=== PATIENT | female | born 1965 | race American Indian/Alaskan Native ===

== ENCOUNTER 2021-03-28 16:56 | Emergency (ER) | payer SELFPAY ==
[2021-03-28 17:58] VITALS: BP 141/87
--- NOTE | 2021-03-28 18:02 | Emergency Department Report ---
ED ENT HPI - General Chief complaint: Dental/Oral Stated complaint: TOOTHACHE Time Seen by Provider: 03/28/21 17:29 Source: patient Mode of arrival: Ambulatory Limitations: No Limitations - History of Present Illness Initial comments: Patient is a 55-year-old female presents emergency room complaints of left lower dental pain that began 2 days ago. She states that this morning she woke up with swelling present to her left lower jaw. She states that she went to her dentist 1 month ago and was advised that she needed to have a tooth pulled and was given antibiotics and her symptoms improved and she did not follow back up with a dentist. She denies any fever, vomiting, chills, difficulty swallowing, difficulty breathing. Past medical history of bowel obstruction. No allergies to medications. - Related Data Previous Rx's Medication Instructions Recorded Last Taken Type Chlorhexidine Mouthwash [Peridex] 15 ml MM BID #1 bottle 03/28/21 Unknown Rx Clindamycin [Clindamycin CAP] 300 mg PO TID 7 Days #21 capsule 03/28/21 Unknown Rx Naproxen 375 mg PO BID PRN #20 tablet 03/28/21 Unknown Rx Allergies Allergy/AdvReac Type Severity Reaction Status Date / Time No Known Allergies Allergy Unverified 03/28/21 17:14 ED Dental HPI - General Chief complaint: Dental/Oral Stated complaint: TOOTHACHE Time Seen by Provider: 03/28/21 17:29 Source: patient Mode of arrival: Ambulatory Limitations: No Limitations - Related Data Previous Rx's Medication Instructions Recorded Last Taken Type Chlorhexidine Mouthwash [Peridex] 15 ml MM BID #1 bottle 03/28/21 Unknown Rx Clindamycin [Clindamycin CAP] 300 mg PO TID 7 Days #21 capsule 03/28/21 Unknown Rx Naproxen 375 mg PO BID PRN #20 tablet 03/28/21 Unknown Rx Allergies Allergy/AdvReac Type Severity Reaction Status Date / Time No Known Allergies Allergy Unverified 03/28/21 17:14 ED Review of Systems ROS: Stated complaint: TOOTHACHE Other details as noted in HPI Comment: All other systems reviewed and negative ED Past Medical Hx - Past Medical History Previous Medical History?: Yes Additional medical history: Bowel obstruction - Surgical History Past Surgical History?: Yes Additional Surgical History: Bowel obstruction - Medications Home Medications: Home Medications Medication Instructions Recorded Confirmed Last Taken Type Chlorhexidine Mouthwash [Peridex] 15 ml MM BID #1 bottle 03/28/21 Unknown Rx Clindamycin [Clindamycin CAP] 300 mg PO TID 7 Days #21 capsule 03/28/21 Unknown Rx Naproxen 375 mg PO BID PRN #20 tablet 03/28/21 Unknown Rx ED Physical Exam - General Limitations: No Limitations General appearance: alert, in no apparent distress - Head Head exam: Present: atraumatic, normocephalic - Eye Eye exam: Present: normal appearance - ENT ENT exam: Present: mucous membranes moist, other (poor dentition, several missing/cracked teeth, dental caries present to the left lower gumline with adjacent edema of the gumline and moderate edema to the left lower face, no erythema, no trismus, no tongue elevation, no muffled voice, no submandibular edema, uvula is midline) - Respiratory Respiratory exam: Absent: respiratory distress, accessory muscle use - Neurological Exam Neurological exam: Present: alert, oriented X3 - Psychiatric Psychiatric exam: Present: normal affect, normal mood - Skin Skin exam: Present: warm, dry, intact ED Course Vital Signs 03/28/21 17:16 Temperature 98.7 F Pulse Rate 88 Respiratory 16 Rate Blood Pressure 141/87 O2 Sat by Pulse 99 Oximetry ED Medical Decision Making - Medical Decision Making Patient is a 55-year-old female presents emergency room complaints of left lower dental pain that began 2 days ago. She states that this morning she woke up with swelling present to her left lower jaw. She states that she went to her dentist 1 month ago and was advised that she needed to have a tooth pulled and was given antibiotics and her symptoms improved and she did not follow back up with a dentist. She denies any fever, vomiting, chills, difficulty swallowing, difficulty breathing. Past medical history of bowel obstruction. No allergies to medications. Vitals are stable. On exam:poor dentition, several missing/cracked teeth, dental caries present to the left lower gumline with adjacent edema of the gumline and moderate edema to the left lower face, no erythema, no trismus, no tongue elevation, no muffled voice, no submandibular edema, uvula is midline. Examination appears consistent with dental abscess. No signs of facial cellulitis, facial abscess, or Bari's at this time. advised pt Please take medication as prescribed. Follow-up with a dentist. Return to emergency room for any new or worsening symptoms. Critical care attestation.: If time is entered above; I have spent that time in minutes in the direct care of this critically ill patient, excluding procedure time. ED Disposition Clinical Impression: Dental abscess, Dental caries, Dentalgia Disposition: 01 HOME / SELF CARE / HOMELESS Is pt being admited?: No Does the pt Need Aspirin: No Condition: Stable Instructions: Dental Abscess Additional Instructions: Please take medication as prescribed. Follow-up with a dentist. Return to emergency room for any new or worsening symptoms. Prescriptions: Clindamycin [Clindamycin CAP] 300 mg PO TID 7 Days #21 capsule Naproxen 375 mg PO BID PRN #20 tablet PRN Reason: pain Chlorhexidine Mouthwash [Peridex] 15 ml MM BID #1 bottle Referrals: your, dentist [Other] - 2-3 Days Time of Disposition: 18:01 Print Language: ERITREAN
== END 2021-03-28 18:30 | disposition home or self-care (01) ==
LOC: ED 16:56
DX: K04.7 Periapical abscess without sinus (principal); K02.9 Dental caries, unspecified; Z79.899 Other long term (current) drug therapy
CPT/HCPCS: 99281